=== PATIENT | male | born 1950 | race African-American/Black ===

== ENCOUNTER 2020-11-08 10:17 | Emergency (ER) | payer MEDICARE, OTHER ==
[2020-11-08] MEDS ORDERED: Lidocaine 1% w/Epinephrine 1:100K 20 ML VIAL ONE (10:47)
== END 2020-11-08 12:22 | disposition home or self-care (01) ==
LOC: CSHERS 10:17
DX: S01.312A Laceration without foreign body of left ear, initial encounter (principal); I10 Essential (primary) hypertension; Z87.891 Personal history of nicotine dependence; Y09 Assault by unspecified means
CPT/HCPCS: 99282

== ENCOUNTER 2022-01-06 08:14 | Emergency (ER) | payer MEDICARE, MEDICAID | END 2022-01-06 09:30 | disposition home or self-care (01) | LOC: CSHERS 08:14 | DX: E11.65 Type 2 diabetes mellitus with hyperglycemia (principal); R05.9 Cough, unspecified; E11.42 Type 2 diabetes mellitus with diabetic polyneuropathy; I10 Essential (primary) hypertension; Z87.891 Personal history of nicotine dependence | CPT/HCPCS: 36416; 71045 ==